=== PATIENT | male | born 1960 | race Caucasian/White ===

== ENCOUNTER 2019-06-20 12:54 | Inpatient (IN) | payer OTHER ==
[~2019-06-20] VITALS: Ht 188 cm; Wt 79.5 kg
[2019-06-20 13:13] LABS: BASO % 0.3 % (0.0-1.0); EOS # 0.8 10^3/uL (0.0-0.5); EOS % 6.5 % (0.0-3.0); HEMOGLOBIN 16.5 g/dl (13.5-17.5); LYMPH # 3.5 10^3/uL (1.5-5.0); LYMPH % 30.3 % (24.0-44.0); MEAN CORPUSCULAR HEMOGLOBIN 28.9 pg (27.0-33.0); MEAN CORPUSCULAR HGB CONC 31.7 g/dl (32.0-36.5); MEAN CORPUSCULAR VOLUME 91.2 fl (80.0-96.0); MONO # 1.5 10^3/uL (0.0-0.8); MONO % 13.1 % (0.0-5.0); NEUTROPHILS # 5.7 10^3/uL (1.5-8.5); NEUTROPHILS % 49.5 % (36.0-66.0); PLATELET COUNT, AUTOMATED 273 10^3/uL (150-450); WHITE BLOOD COUNT 11.6 10^3/uL (4.0-10.0)
[2019-06-20 13:20] LABS: ABG BASE EXCESS -3.6 (-2.0-2.0); ABG O2 SATURATION 99.3 % (95.0-99.0); ABG PARTIAL PRESSURE O2 232.2 mmHg (75.0-100.0); ABG STANDARD HCO3 21.6 MEQ/L (22.0-26.0); ABG TOTAL CO2 29.2 MEQ/L (23.0-31.0)
[2019-06-20] MEDS ORDERED: IPRATROPIUM 0.5MG/ALBUTEROL 2.5MG INH SOL UD 3ML (DUONEB)(J7620) As Ordered ONE (13:21)
[2019-06-20 13:24] LABS: ABG pH (ARTERIAL) 7.184 UNITS (7.350-7.450)
[2019-06-20 13:25] LABS: ABG PARTIAL PRESSURE CO2 73.3 mmHg (35.0-45.0)
[2019-06-20 13:25] LABS: INR 1.11; PROTHROMBIN TIME 14.1 SECONDS (11.8-14.0)
[2019-06-20 13:26] LABS: PARTIAL THROMBOPLASTIN TIME 30.8 SECONDS (25.0-38.4)
[2019-06-20] MEDS ORDERED: ALBU8.5H INH (13:30)
[2019-06-20] MEDS ORDERED: CLON1TAB8 PO (13:30)
[2019-06-20] MEDS ORDERED: BREO1INH INH (13:30)
[2019-06-20] MEDS ORDERED: OXYC10TA12 PO (13:30)
[2019-06-20] MEDS: IPRATROPIUM 0.5MG/ALBUTEROL 2.5MG INH SOL UD 3ML (DUONEB)(J7620) NEB PRN ×3 (13:31→14:10)
[2019-06-20 13:38] LABS: BLOOD UREA NITROGEN 20 MG/DL (7-18); CALCIUM LEVEL 8.9 MG/DL (8.8-10.2); CARBON DIOXIDE LEVEL 29 MEQ/L (21-32); CHLORIDE LEVEL 101 MEQ/L (98-107); CK-MB VALUE MASS 1.5 NG/ML (<3.6); CPK CREATINE PHOSPHOKINASE 72 U/L (39-308); CREATININE FOR GFR 1.31 MG/DL (0.70-1.30); GLOMERULAR FILTRATION RATE 59.4 (>49); GLUCOSE, FASTING 230 MG/DL (70-100); MB/CK RELATIVE INDEX 2.08 (< OR =4); POTASSIUM SERUM 4.2 MEQ/L (3.5-5.1); SODIUM LEVEL 137 MEQ/L (136-145); TROPONIN I < 0.02 NG/ML (< 0.10)
[2019-06-20] MEDS ORDERED: MIRTAZAPINE (13:59)
[2019-06-20] MEDS ORDERED: INCR1INH (13:59)
[2019-06-20] MEDS ORDERED: TENO300T2 PO (13:59)
[2019-06-20 14:10] LABS: ABG BASE EXCESS -4.7 (-2.0-2.0); ABG O2 SATURATION 91.9 % (95.0-99.0); ABG PARTIAL PRESSURE CO2 46.3 mmHg (35.0-45.0); ABG PARTIAL PRESSURE O2 65.9 mmHg (75.0-100.0); ABG STANDARD HCO3 20.5 MEQ/L (22.0-26.0); ABG TOTAL CO2 23.4 MEQ/L (23.0-31.0); ABG pH (ARTERIAL) 7.294 UNITS (7.350-7.450)
[2019-06-20] MEDS ORDERED: LevoFLOXacin IV 750 MG in IV 1 EA IV ONE (15:00)
[2019-06-20] MEDS ORDERED: GI COCKTAIL 50ML BTL(HYOSCYAMINE/MAALOX/LIDOCAINE VISCOUS)(1:3:1) PO ONE (15:15)
[2019-06-20] MEDS ORDERED: ALBU83IN INH (15:21)
[2019-06-20] MEDS ORDERED: REME30TA PO (15:21)
[2019-06-20] MEDS ORDERED: IPRATROPIUM 0.5MG/ALBUTEROL 2.5MG INH SOL UD 3ML (DUONEB)(J7620) NEB PRN (16:15)
[2019-06-20 16:25] LABS: CK-MB VALUE MASS < 1.0 NG/ML (<3.6); CPK CREATINE PHOSPHOKINASE 60 U/L (39-308); MB/CK RELATIVE INDEX 1.67 (< OR =4); TROPONIN I < 0.02 NG/ML (< 0.10)
[2019-06-20] MEDS ORDERED: ACETAMINOPHEN 500 MG TAB PO PRN (16:30)
[2019-06-20 17:57] VITALS: BP 128/88
[2019-06-20] MEDS: methylPREDNISolone INJ 125 MG/2 ML VIAL (J2930) IV SCH (18:30)
[2019-06-20 20:00] VITALS: BP 129/84
[2019-06-20] MEDS: MIRTAZAPINE 15 MG TAB PO SCH (20:06)
[2019-06-20] MEDS: oxyCODONE 5MG TAB PO PRN (20:06)
[2019-06-20] MEDS: ENOXAPARIN 40 MG/0.4 ML SYRINGE (J1650) SC SCH (20:07)
[2019-06-20] MEDS: IPRATROPIUM 0.5MG/ALBUTEROL 2.5MG INH SOL UD 3ML (DUONEB)(J7620) NEB SCH (20:33)
[2019-06-21] VITALS (7 sets, daily range): BP systolic 115–146; BP diastolic 65–87
[2019-06-21] MEDS: IPRATROPIUM 0.5MG/ALBUTEROL 2.5MG INH SOL UD 3ML (DUONEB)(J7620) NEB SCH ×4 (00:55→20:00)
[2019-06-21 05:08] LABS: HEMATOCRIT 46.4 % (42.0-52.0); HEMOGLOBIN 15.5 g/dl (13.5-17.5); MEAN CORPUSCULAR HEMOGLOBIN 29.4 pg (27.0-33.0); MEAN CORPUSCULAR HGB CONC 33.4 g/dl (32.0-36.5); MEAN CORPUSCULAR VOLUME 87.9 fl (80.0-96.0); PLATELET COUNT, AUTOMATED 185 10^3/uL (150-450); RED BLOOD COUNT 5.28 10^6/uL (4.30-6.10); WHITE BLOOD COUNT 8.3 10^3/uL (4.0-10.0)
[2019-06-21 05:23] LABS: BLOOD UREA NITROGEN 20 MG/DL (7-18); CALCIUM LEVEL 9.2 MG/DL (8.8-10.2); CARBON DIOXIDE LEVEL 29 MEQ/L (21-32); CHLORIDE LEVEL 102 MEQ/L (98-107); GLOMERULAR FILTRATION RATE > 60.0 (>49); GLUCOSE, FASTING 140 MG/DL (70-100); POTASSIUM SERUM 4.5 MEQ/L (3.5-5.1); SODIUM LEVEL 138 MEQ/L (136-145)
[2019-06-21] MEDS: methylPREDNISolone INJ 125 MG/2 ML VIAL (J2930) IV SCH (06:35)
[2019-06-21] MEDS: oxyCODONE 5MG TAB PO PRN ×3 (06:44→19:02)
--- NOTE | 2019-06-21 07:19 | HPE ---
DATE OF ADMISSION: 06/20/2019 PRIMARY CARE PROVIDER: Noah Leavitt/[facility] CHIEF COMPLAINT: Shortness of breath, excess sedation from unintentional dosing of Klonopin. HISTORY: Sanjeev Peralta is a 59-year-old patient admitted to the hospitalist service. He was a patient of Dr. Aric Dean before he moved and has an appointment to see Noah Leavitt at the [facility] on 06/22/2019. The patient has a history of smoking induced lung disease, was seen at [facility] on 01/21/2019, had obstructive pattern on his spirometry with an FEV1 of 1.98 and a bronchodilator response. Mild diffusion impairment noted as well. Apparently, had a CT of his chest that showed clearing of a previously identified right upper lobe nodular density. He also has a polyclonal gammopathy for which he has been followed by [facility] and chronic hepatitis B followed by Dr. Segovia from Infectious Disease. He is being admitted with exacerbation of chronic obstructive pulmonary disease (COPD), been short of breath for several days. He says has been progressively worse of the past week or two. He has not been able to sleep for three nights due to shortness of breath. So apparently this morning he was so agitated over not sleep his gave him an extra dose of Klonopin. He then became excessively sedated. Per emergency room physician discussion when the patient arrived to the ER he was obtunded and having agonal acting respirations. He did resuscitate with BiPAP, which has been discontinued and when I saw him he was on nasal cannula, speaking in full sentences and fully alert. Despite his lung problems, he has only been hospitalized for his pulmonary disease once which was on 10/28/2018. He continues to smoke though he is proud to say that he quit a week ago, so he is making an effort. He has been coughing up bloody sputum, said this started yesterday. He does not usually have hemoptysis. He does have a right middle lobe nodular mass on his CT scan. I am not sure if they compared this with previous CTs. There is no formal report yet. As noted above, the patient has chronic hepatitis B and is being treated with tenofovir by Dr. Segovia at the infectious disease clinic. He has chronic burning in the throat and upper abdomen for which he has been seen by [facility] gastroenterology. He had a gallbladder ultrasound where the ejection fraction was normal on 09/15/2018. 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 EGD on 04/16/2019 showed H. Pylori gastritis. No celiac disease. His colonoscopy on 05/17/2019 showed tubular adenoma. He has chronic pain syndrome and is on chronic oxycodone. It looks like he was discharged from [facility] 07/2018. Unfortunately I cannot tell from the discharge paperwork that they sent exactly what he was admitted for. He had a conventional stress test at [facility] by Dr. Gan 12/2018 that was low risk and no ischemic changes on the EKG portion. It was terminated early due to shortness of breath. PAST MEDICAL HISTORY: He has a history of depressive disorder. Chronic anxiety. Traumatic blindness of the left eye. Compression fracture lumbar vertebrae. Bilateral lower extremity neuropathy with no sensation from the knees down bilaterally. SURGICAL HISTORY: Eye and brain surgery at 16. Left hand surgery. Left hernia repair. Colonoscopy with tubular adenomas 05/17/2019. Gastritis on EGD 04/16/2019. FAMILY HISTORY: Father of a pulmonary embolism. He had coronary artery disease (CAD). Mother of an myocardial infarction (RI) at 82. She had type 2 diabetes. A brother had coronary artery disease (CAD), anxiety attacks. SOCIAL HISTORY: He is . He smokes a pack and a half day, he quit seven days ago. He denies alcohol intake. He is disabled. ALLERGIES: 1. PENICILLIN caused anaphylaxis. 2. GABAPENTIN caused a rash. 3. VICODIN caused nausea, vomiting. HOME MEDICATIONS: - lactulose 15 mg daily as needed - mirtazapine 30 mg at bedtime - Breo Ellipta 100-25 one inhalation daily - albuterol by nebulizer four times a day - aspirin 81 mg daily - trazodone 50 mg at bedtime - Protonix 40 mg daily - [id number] mg as needed - Klonopin 1 mg twice a day - tenofovir 300 mg daily - oxycodone 10 mg three times a day REVIEW OF SYSTEMS: Hemoptysis as above. No fevers, chills, night sweats, rectal bleeding or urinary bleeding. PHYSICAL EXAMINATION: Chronically ill appearing. Prosthetic left eye. Pharynx shows dry mucous membranes. Neck no masses, supple, no carotid bruits. Lungs expiratory wheezes in all bledsoe. Heart regular rhythm, no murmur. Abdomen soft, nontender, no masses. Extremities no clubbing, cyanosis, or edema. Moves arms and legs with equal strength. LABS: Chest x-ray showed a right middle lobe nodule. CT of the chest showed a 3 cm right middle lobe nodule, neoplastic versus infectious. There is a middle lobe nodule; previous nodule was upper lobe per report. White count 11.6, hemoglobin 16.5, platelets 273. Sodium 142, potassium 4.2, BUN 20, creatinine 1.3. Troponin negative times two. Ammonia 38. ABG 7.29/46/65. IMPRESSION: 1. Exacerbation of COPD from presumed bronchitis versus right middle lobe pneumonia. He will be admitted to a progressive care unit (PCU) bed. He is speaking in full sentences. Excessive sedation seems to have passed. He is no longer on noninvasive ventilatory support and maintaining adequate saturations on nasal cannula, so I think he is okay to go to PCU. Nebulized bronchodilators, intravenous steroids, and empiric antibiotic therapy with Levaquin has been ordered. The importance of smoking cessation discussed. 2. Right middle lobe mass, infectious versus neoplastic. He had a previous CT scan earlier this year suggesting the current lesion could be infectious as it reportedly was not present earlier this year. We will ask pulmonary to review these scans at some point. 3. Chronic pain syndrome from lower extremity neuropathy. Continue his opiate therapy. 4. History of depression. Continue antidepressant medications. 5. Chronic anxiety. His mental status is improved. Will restart his Klonopin to avoid withdrawal syndrome. 6. Chronic hepatitis B. Will ask pharmacy to secure tenofovir for his hepatitis B therapy. 7. Hemoptysis, presumably from lung infection. If it persists he will need further workup for this. 8. Deep vein thrombosis (DVT) prophylaxis with Lovenox has been ordered. ADDENDUM: When I admitted Sanjeev it appeared that he had only a single record at [facility], so suspected he had been registered incorrectly. Further investigation indicates that he has two medical record accounts and has extensive past medical history under his previous account including the CT scan of the chest on 01/15, 11/15, 10/16. I called the navarrete clear in the ER and asked them to try to merge those records. This is the second patient in two days who has been registered with two medical record accounts.
--- NOTE | 2019-06-21 07:57 | REP ---
REASON: Dyspnea. COMPARISON: None. There is a subtle opacity in the right lower lobe. The pleural angles are sharp and the heart is not enlarged. The osseous structures are within normal limits. IMPRESSION: Subtle right lower lobe opacity. Etiology uncertain. There are no priors for comparison. Focal atelectasis or early developing pneumonia cannot be ruled out. Electronically Signed by Toby Conroy DO 06/25/2019 04:13 P
[2019-06-21] MEDS: clonazePAM 1 MG TAB PO PRN ×2 (08:14→21:46)
--- NOTE | 2019-06-21 08:30 | REP ---
REASON: Focal opacity seen in the right lung on prior plain film exam. There is no mediastinal or hilar adenopathy. There are no pleural or pericardial effusions. The imaged upper abdomen and imaged osseus structures are within normal limits. Evaluation of the lung bledsoe shows a right middle lobe focal asymmetric density measuring 3.1 cm. Scattered asymmetric densities are seen throughout the lung bledsoe but again particularly in the right lung base medially. IMPRESSION: Asymmetric densities as described above with a right middle lobe focal opacity. Infectious versus neoplastic etiology. There are no priors for comparison. Close followup is recommended. Consider pulmonary consultation if clinically relevant. Electronically Signed by Toby Conroy DO 06/25/2019 04:30 P
--- NOTE | 2019-06-21 08:31 | ECGEPIP ---
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
--- NOTE | 2019-06-21 08:34 | ECGEPIP ---
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
--- NOTE | 2019-06-21 12:00 | IPN ---
DATE: 06/21/2019 Sanjeev looks and feels better. His breathing has significantly improved from yesterday. He is not short of breath. He was admitted with chronic obstructive pulmonary disease (COPD) exacerbation and excessive sedation from unintentional overdosing of Klonopin. He has a right middle lobe nodule on his CT scan and will need outpatient followup. PHYSICAL EXAMINATION: Afebrile. Vitals signs stable. Oxygen saturation at 99% on 3 liters. General Appearance: Resting comfortably. Lungs are much clearer. There is only a few wheezing. Heart regular rhythm. Abdomen soft, nontender. No peripheral edema. LABS: White count is down to 8.3. Electrolytes are unremarkable. CIPs were negative. Blood cultures are pending. IMPRESSION: 1. Chronic obstructive pulmonary disease (COPD) exacerbation improved on his current regimen. Continue his nebulized bronchodilator and Levaquin for presumed pneumonia. Will stop the IV steroid and put him on oral prednisone 40 mg daily for 4 days to complete a 5-day course of steroids. 2. Suspected pneumonia. Continue his Levaquin 750 mg daily. Go to oral Levaquin tomorrow. 3. Right middle lobe mass infectious versus neoplastic. Needs followup CT as an outpatient. 4. Chronic anxiety: He received an excessive dose of Klonopin from his yesterday. He is over the side effects of this. He is back on his baseline dose. 5. History of chronic pain from lower extremity neuropathy on chronic opiate therapy. 6. Chronic hepatitis B. His is bringing him his tenofovir. 7. Hemoptysis: Presumably from lung infection. This has resolved since his admission. Probably can be discharged tomorrow if stable.
[2019-06-21] MEDS: predniSONE 20 MG TAB PO SCH (12:50)
[2019-06-21] MEDS ORDERED: LevoFLOXacin IV 750 MG in IV 1 EA IV SCH (15:00)
[2019-06-21] MEDS: ENOXAPARIN 40 MG/0.4 ML SYRINGE (J1650) SC SCH (21:46)
[2019-06-21] MEDS: MIRTAZAPINE 15 MG TAB PO SCH (21:46)
[2019-06-22] MEDS: oxyCODONE 5MG TAB PO PRN ×3 (01:35→13:38)
[2019-06-22] MEDS: IPRATROPIUM 0.5MG/ALBUTEROL 2.5MG INH SOL UD 3ML (DUONEB)(J7620) NEB SCH ×2 (02:18→09:56)
[2019-06-22 04:00] VITALS: BP 128/83
[2019-06-22 06:05] LABS: HEMATOCRIT 44.4 % (42.0-52.0); HEMOGLOBIN 14.5 g/dl (13.5-17.5); MEAN CORPUSCULAR HEMOGLOBIN 28.8 pg (27.0-33.0); MEAN CORPUSCULAR HGB CONC 32.7 g/dl (32.0-36.5); MEAN CORPUSCULAR VOLUME 88.3 fl (80.0-96.0); PLATELET COUNT, AUTOMATED 185 10^3/uL (150-450); RED BLOOD COUNT 5.03 10^6/uL (4.30-6.10); WHITE BLOOD COUNT 13.2 10^3/uL (4.0-10.0)
[2019-06-22 06:23] LABS: BLOOD UREA NITROGEN 23 MG/DL (7-18); CALCIUM LEVEL 8.9 MG/DL (8.8-10.2); CARBON DIOXIDE LEVEL 29 MEQ/L (21-32); CHLORIDE LEVEL 102 MEQ/L (98-107); CREATININE FOR GFR 0.98 MG/DL (0.70-1.30); GLOMERULAR FILTRATION RATE > 60.0 (>49); GLUCOSE, FASTING 129 MG/DL (70-100); POTASSIUM SERUM 3.8 MEQ/L (3.5-5.1); SODIUM LEVEL 139 MEQ/L (136-145)
[2019-06-22] MEDS: predniSONE 20 MG TAB PO SCH (07:49)
[2019-06-22] MEDS: clonazePAM 1 MG TAB PO PRN (07:50)
[2019-06-22 08:00] VITALS: BP 112/79
[2019-06-22] MEDS ORDERED: TENOFOVIR DISOPROXIL FUMARATE 300 MG PO SCH (09:00)
[2019-06-22] MEDS ORDERED: CLON1TAB8 PO (11:27)
[2019-06-22] MEDS ORDERED: PRED20TA PO (11:27)
[2019-06-22] MEDS ORDERED: BREO1INH INH (11:27)
[2019-06-22] MEDS ORDERED: ALBU83IN INH (11:27)
[2019-06-22] MEDS ORDERED: REME30TA PO (11:27)
[2019-06-22] MEDS ORDERED: LEVO750T13 PO (11:27)
[2019-06-22] MEDS ORDERED: ALBU8.5H INH (11:27)
[2019-06-22] MEDS ORDERED: OXYC10TA12 PO (11:27)
--- NOTE | 2019-06-23 17:44 | DS.PDOC ---
Discharge Summary General Date of Admission Jun 20, 2019 at 16:02 Date of Discharge June 22, 2019 Discharge Summary PROCEDURES PERFORMED DURING STAY: [None]. ADMITTING DIAGNOSES: 1. . DISCHARGE DIAGNOSES: 1. . COMPLICATIONS/CHIEF COMPLAINT: Copd With Acute Exacerbation. HISTORY OF PRESENT ILLNESS: . HOSPITAL COURSE: . DISCHARGE MEDICATIONS: Please see below. ALLERGIES: Please see below. PHYSICAL EXAMINATION ON DISCHARGE: VITAL SIGNS: Please see below. GENERAL: HEENT: NECK: CARDIOVASCULAR EXAMINATION: RESPIRATORY EXAMINATION: ABDOMINAL EXAMINATION: EXTREMITIES: SKIN: NEUROLOGICAL EXAMINATION: PSYCHIATRIC EXAMINATION: LABORATORY DATA: Please see below. IMAGING: PROGNOSIS: ACTIVITY: [As tolerated]. DIET: DISCHARGE PLAN: DISPOSITION: Home, Self-Care. DISCHARGE INSTRUCTIONS: 1. . ITEMS TO FOLLOWUP ON ON OUTPATIENT: 1. . DISCHARGE CONDITION: [Stable]. TIME SPENT ON DISCHARGE: Greater than minutes. Vital Signs/I&Os Vital Signs Date Time Temp Pulse Resp B/P (MAP) Pulse Ox O2 Delivery O2 Flow Rate FiO2 06/22/19 13:38 22 06/22/19 08:00 97.5 68 112/79 (90) 94 Room Air 06/22/19 04:00 3.0 06/20/19 13:46 98 I&O- Last 24 Hours up to 6 AM 06/23/19 06:00 Intake Total 240 ml Balance 240 ml Microbiology Microbiology 06/20/19 Blood Culture - Preliminary, Resulted 06/20/19 Blood Culture - Preliminary, Resulted No Growth after 72 hours. All specime... Discharge Medications Scheduled Fluticasone/Vilanterol (Breo Ellipta 100-25 Mcg INH) 1 Each Blst.w.dev, 1 PUFF INH DAILY Levofloxacin (Levofloxacin) 750 Mg Tablet, 1 TAB PO DAILY Mirtazapine (Remeron) 30 Mg Tablet, 30 MG PO QHS Prednisone (Prednisone) 20 Mg Tablet, 40 MG PO DAILY Tenofovir Disoproxil Fumarate (Tenofovir Disoproxil Fumarate) 300 Mg Tablet, 300 MG PO DAILY, (Reported) Scheduled PRN Albuterol Sulf (Albuterol Sulfate) 2.5 Mg/3 Ml Vial.neb, 1 VIAL INH Q4H PRN for SOB/WHEEZING Albuterol Sulfate (Albuterol Sulfate Hfa) 8.5 Gm Hfa.aer.ad, 2 PUFFS INH Q4H PRN for SOB/WHEEZING Clonazepam (Clonazepam) 1 Mg Tablet, 1 MG PO BID PRN for ANXIETY Oxycodone HCl (Oxycodone HCl) 10 Mg Tablet, 10 MG PO QID PRN for PAIN Allergies Coded Allergies: Penicillins (Verified Allergy, Unknown, 06/20/19) gabapentin (Verified Allergy, Unknown, rash, 06/20/19) trazodone (Verified Allergy, Unknown, 06/20/19) hydrocodone (Verified Adverse Reaction, Mild, nausea vomiting, 06/20/19) SILVANA POWELL MD Jun 23, 2019 17:44
== END 2019-06-22 13:55 | disposition home or self-care (01) | DRG 140 ==
LOC: M ED 12:54 → M ED INP 16:02 → M PCU 17:20
PROVIDERS: ADMIT Family Medicine; ATTEND Internal Medicine
DX: J44.1 Chronic obstructive pulmonary disease with (acute) exacerbation (principal); J18.9 Pneumonia, unspecified organism; R04.2 Hemoptysis; J20.9 Acute bronchitis, unspecified; R91.8 Other nonspecific abnormal finding of lung field; G89.4 Chronic pain syndrome; F32.9 Major depressive disorder, single episode, unspecified; F41.9 Anxiety disorder, unspecified; B18.1 Chronic viral hepatitis B without delta-agent; T42.4X1A Poisoning by benzodiazepines, accidental (unintentional), initial encounter; J44.0 Chronic obstructive pulmonary disease with (acute) lower respiratory infection; Z79.891 Long term (current) use of opiate analgesic; Z88.0 Allergy status to penicillin; Z88.5 Allergy status to narcotic agent; Z88.8 Allergy status to other drugs, medicaments and biological substances; Z87.891 Personal history of nicotine dependence; Z79.82 Long term (current) use of aspirin; Z79.899 Other long term (current) drug therapy